=== PATIENT | male | born 1955 | race Caucasian/White ===

== ENCOUNTER 2023-12-04 17:40 | Emergency (ER) | payer MEDICAID ==
[~2023-12-04] VITALS: Ht 172.7 cm; Wt 90.7 kg
[2023-12-04 18:03] VITALS: BP 135/66; TEMP 98
[2023-12-04] MEDS ORDERED: IBUPROFEN 600 MG TABLET ONE (18:47)
[2023-12-04] MEDS ORDERED: ACETAMINOPHEN ES 500 MG TABLET ONE (18:47)
[2023-12-04] MEDS: ACETAMINOPHEN ES 500 MG TABLET PO ONE (18:51)
[2023-12-04] MEDS: IBUPROFEN 600 MG TABLET PO ONE (18:51)
[2023-12-04 18:55] VITALS: O2SAT 97
== END 2023-12-04 18:56 | disposition home or self-care (01) ==
LOC: ER 17:54
DX: D17.1 Benign lipomatous neoplasm of skin and subcutaneous tissue of trunk (principal)